=== PATIENT | male | born 1975 | race African-American/Black ===

== ENCOUNTER 2016-08-20 00:51 | Emergency (ER) | payer OTHER ==
[2016-08-20] MEDS ORDERED: Pantoprazole 40 MG VIAL ONE (01:20)
[2016-08-20 01:27] LABS: #Basophils 0.1 thou/uL (0.0-0.2); #Eosinphils 0.6 thou/uL (0.0-0.7); #Lymphocytes 2.6 thou/uL (1.20-3.40); #Monocytes 0.5 thou/uL (0.11-0.59); %Basophils 1.4 % (0.0-1.0); %Eosinophils 7.4 % (0.0-10.0); %Monocytes 6.8 % (0.0-10.0); Hematocrit 46.8 % (42.0-52.0); Mean Platelet Volume 11.4 fL (7.4-10.4); Red Blood Cell (RBC) Count 5.29 mill/uL (4.70-6.10); White Blood Cell (WBC) Count 7.9 thou/uL (4.8-10.8)
[2016-08-20 01:40] LABS: ALT (SGPT) 30 U/L (0-55); AST (SGOT) 19 U/L (5-34); Alkaline Phosphatase 50 U/L (40-150); Anion Gap 12 mmol/L (10-20); BUN (Urea Nitrogen) 21 mg/dL (8.9-20.6); Bilirubin, Total 0.5 mg/dL (0.2-1.2); Calc. Creatinine Clearance 0 mL/min (70-130); Calcium 9.1 mg/dL (7.8-10.44); Carbon Dioxide 24 mmol/L (22-29); Chloride 108 mmol/L (98-107); Estimated GFR-MDRD 89; Globulin 2.8 g/dL (2.4-3.5)
[2016-08-20 01:41] LABS: Troponin I Less than 0.010 ng/mL (< 0.028)
--- NOTE | 2016-08-20 03:14 | ERRECORD ---
[facility] EMERGENCY RECORD HPI CHEST PAIN (01:10 WMEI) CHIEF COMPLAINT: Patient presents for evaluation of chest pain, ongoing. HISTORIAN: History provided by patient, x 3 days intermittent lasts seconds no assc symptoms. LOCATION: Symptoms are localized, most severe in substernal area. QUALITY: Pain is dull in nature. TIME COURSE: Gradual onset of symptoms, Symptoms are improving. ASSOCIATED WITH: No associated diaphoresis, No associated nausea, No associated shortness of breath. EXACERBATED BY: Patient's condition exacerbated by nothing. RELIEVED BY: Patient's condition relieved by nothing. ROS (01:11 WMEI) CONSTITUTIONAL: Historian denies chills, denies fever. EYES: Historian denies eye pain, denies eye discharge. ENT: Historian denies rhinorrhea, denies sore throat. CARDIOVASCULAR: Historian reports chest pain, no radiation, Historian denies diaphoresis. RESPIRATORY: Historian denies cough, denies shortness of breath. GI: Historian denies abdominal pain, denies nausea, denies vomiting. MUSCULOSKELETAL: Historian denies joint redness, denies joint stiffness. SKIN: Historian denies skin changes, denies skin lesions. NEUROLOGIC: Historian denies headache, denies mental status changes. PSYCHIATRIC: Historian denies alcohol abuse, denies depression, denies drug abuse. PAST MEDICAL HISTORY MEDICAL HISTORY: Notes: hydrocephaly, Flu vaccine up to date, Date of immunization: 2013, Tetanus not up to date, Pneumococcal vaccine not up to date, Past medical history includes cardiac history, Past medical history includes history of hyperlipidemia, high cholesterol, currently being treated, Past medical history includes history of hypertension, which has been treated, Patient is compliant. REVIEWED 08/20/16. (01:09 CHOB) No past medical history of cardiac disease, Past medical history includes gastrointestinal disease, gastroesophageal reflux disease. 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 REVIEWED 08/20/16. (01:09 CHOB) PSYCHIATRIC HISTORY: No previous psychiatric history. REVIEWED 08/20/16. (01:09 CHOB) SOCIAL HISTORY: Patient denies alcohol use, Patient denies drug use, Patient has no smoking history, Lives at home, with family. REVIEWED 08/20/16. (01:09 CHOB) &a-1R&a+25V*p+0X*q0960S*c202B*c15G*c2P*p-0X&a-25V&a+1R Name: Mendoza Almaraz : 1975 M41 MedRec: [id number] AcctNum: [id number] Prepared: SatAug 20, 2016 02:49 by Interface Page 1 of 3 pMD [facility] EMERGENCY RECORD KNOWN ALLERGIES No Known Drug Allergies (Unconfirmed) simvastatin: - causes rapid heart beat CURRENT MEDICATIONS PriLOSEC OTC: TABLET, DELAYED RELEASE (ENTERIC COATED) : Strength - 20 mg : ORAL Patient Dose: once a day. (02:30 CHOB) atorvastatin: TABLET : Strength - 10 mg : ORAL Patient Dose: once a day. (02:30 CHOB) Aspirin Low Dose: TABLET, DELAYED RELEASE (ENTERIC COATED) : Strength - 81 mg : ORAL Patient Dose: once a day. (02:30 CHOB) meTOPROLOL tartrate: TABLET : Strength - 50 mg : ORAL Patient Dose: 1 tab(s) Oral once a day (in the morning). (02:32 CHOB) lisinopril: TABLET : Strength - 10 mg : ORAL Patient Dose: 1 tab(s) Oral once a day (in the morning). (02:32 CHOB) VITAL SIGNS VITAL SIGNS: BP: 111/66, Pulse: 87 (Regular), Resp: 18 (Non-Labored), Temp: 97.2 (Oral), Pain: 0, O2 sat: 95 on Room Air, Time: 08/20/2016 00:52. (00:52 CHOB) BP: 130/102, Pulse: 86, Resp: 20, Pain: 0, O2 sat: 96, Time: 08/20/2016 01:02. (01:02 LSMI) BP: 137/94, Pulse: 87, Resp: 19, Pain: 0, O2 sat: 97 on Room Air, Time: 08/20/2016 01:11. (01:11 CHOB) BP: 136/90, Pulse: 88, Resp: 20, Temp: 98.0 (Oral), Pain: 0, O2 sat: 98 on Room Air, Time: 08/20/2016 02:00. (02:00 LSMI) BP: 134/90, Pulse: 86, Resp: 20, Temp: 98.0 (Oral), Pain: 0, O2 sat: 98 on Room Air, Time: 08/20/2016 02:35. (02:35 LSMI) PHYSICAL EXAM (01:12 WMEI) CONSTITUTIONAL: Vital Signs Reviewed, Patient appears non toxic, Patient alert and oriented to person, place and time. HEAD: Head exam included findings of head atraumatic, normocephalic. EYES: Extraocular muscles intact, Conjunctiva normal, Sclera normal. ENT: Ear exam normal, Nose exam normal, Pharynx exam normal. NECK: Neck exam included findings of normal range of motion, Trachea midline. RESPIRATORY CHEST: Breath sounds clear, Chest exam included findings of chest movement symmetrical. CARDIOVASCULAR: Heart rate regular rate and rhythm, Heart sounds &a-1R&a+25V*p+0X*t8135V*c202B*c15G*c2P*p-0X&a-25V&a+1R Name: Mendoza Almaraz : 1975 M41 MedRec: [id number] AcctNum: [id number] Prepared: SatAug 20, 2016 02:49 by Interface Page 2 of 3 pMD [facility] EMERGENCY RECORD normal. ABDOMEN MALE: Abdominal exam included findings of abdomen nontender, no distension. UPPER EXTREMITY: Upper extremity exam included findings of inspection normal, Range of motion normal, Motor strength normal. LOWER EXTREMITY: Lower extremity exam included findings of inspection normal, Range of motion normal, Motor strength normal. NEURO: Gaston coma scale 15, Neuro exam findings include patient oriented to person, place and time, Speech normal, Gait normal. SKIN: Skin exam included findings of skin warm, dry, and normal in color. LYMPHATIC: Lymphatic exam normal. PSYCHIATRIC: Psychiatric exam included findings of patient oriented to person place and time, Normal affect, Judgment normal, Insight normal. RADIOLOGYINTERPRETATION (02:02 WMEI) PET CARE TECHNICIAN: Preliminary review of x-rays by, ED Physician, chest wnl. MEDICATION ADMINISTRATION SUMMARY Drug Name: Aspir-81, Dose Ordered: 324 mg, Route: Oral, Status: Given, Time: 01:29 08/20/2016, Drug Name: Protonix intravenous, Dose Ordered: 40 mg, Route: IV Push, Status: Given, Time: 01:24 08/20/2016, Detailed record available in Medication Service section. PROBLEM LIST No recorded problems DIAGNOSIS (02:08 WMEI) FINAL: PRIMARY: Chest Pain, unspecified, ADDITIONAL: gerd. PRESCRIPTION No recorded prescriptions DISPOSITION PATIENT: Disposition Type: Discharge, Disposition: *Discharge Home. (02:08 WMEI) Patient left the department. (02:44 LSMI) Grewal: CURTIS=ALBERT Macario, Janay LSMI=ANA Meek Leah WMEI=DO Esteban William &a-1R&a+25V*p+0X*n6522S*c202B*c15G*c2P*p-0X&a-25V&a+1R Name: Mendoza Almaraz : 1975 M41 MedRec: [id number] AcctNum: [id number] Prepared: SatAug 20, 2016 02:49 by Interface Page 3 of 3 pMD MTDD
--- NOTE | 2016-08-20 03:17 | PICIS ---
[facility] EMERGENCY RECORD TRIAGE (SatAug 20, 2016 00:55 CHOB) TRIAGE NOTES: CHEST PAIN INTERMITTENTLY X3 DAYS. PT STATES CHEST PAIN WOKE HIM UP OUT OF SLEEP APX 30 MINUTES. AT PRESENT PT DENIES ANY PAIN PRESENT. (SatAug 20, 2016 00:55 CHOB) PATIENT: NAME: Mendoza Almaraz, AGE: 41, GENDER: male, : Sat1975, TIME OF GREET: SatAug 20, 2016 00:52, PREFERRED LANGUAGE: [place], ETHNICITY: Not or , ECODE BILLING MAP: [facility], SSN: [id number], Zip Code: [address], KG WEIGHT: 120.2 (est.), PHONE: , , , PERSON ID: [id number], PCP: MD TREADWELL THOMAS. (SatAug 20, 2016 00:55 CHOB) COMPLAINT: HIGH RISK COMPLAINT: Chest Pain. (SatAug 20, 2016 00:55 CHOB) ADMISSION: URGENCY: 2 Emergent, ADMISSION SOURCE: Home, TRANSPORT: CAR, BED: ER -04. (SatAug 20, 2016 00:55 CHOB) ASSESSMENT: Assessment: PT A/OX4, SPEAKS FULL SENTENCES, GCS 15 (4,5,6) SKIN W/D. NO PAIN AT PRESENT. PT DENIES N/V, NO DISTRESS NOTED., Symptoms began 08/17/2016 01:09. (01:09 CHOB) PAIN: No complaint of pain, Location NO PAIN AT PRESENT, WHEN PAIN IS PRESENT, PAIN IS LOCATED LT CHEST, PRESSURE, Pain is intermittent. (01:09 CHOB) SIRS SCORING: Heart Rate 55-109 (0), Temp range 96.8-101.1 (0), respiratory rate 12-24 (0), Mental Status altered: no (0), Infection or Suspected Infection: No. (01:09 CHOB) TRIAGE SCREENING: Patient denies suicidal ideation, Patient denies presence of domestic violence. (01:09 CHOB) PROVIDERS: TRIAGE NURSE: Janay Macario RN. (SatAug 20, 2016 00:55 CHOB) VITAL SIGNS: BP 111/66, Pulse 87, (Regular), Resp 18, (Non-Labored), Temp 97.2, (Oral), Pain 0, O2 Sat 95, on Room Air, Time 08/20/2016 00:52. (00:52 CHOB) PREVIOUS VISIT ALLERGIES: simvastatin. (SatAug 20, 2016 00:55 CHOB) simvastatin. (01:09 CHOB) KNOWN ALLERGIES No Known Drug Allergies (Unconfirmed) simvastatin: - causes rapid heart beat CURRENT MEDICATIONS PriLOSEC OTC: TABLET, DELAYED RELEASE (ENTERIC COATED) : Strength - 20 mg : ORAL Patient Dose: once a day. (02:30 CHOB) atorvastatin: TABLET : Strength - 10 mg : ORAL Patient Dose: once a day. (02:30 CHOB) Aspirin Low Dose: TABLET, DELAYED RELEASE (ENTERIC COATED) : Strength - 81 mg : ORAL Patient Dose: once a day. (02:30 CHOB) meTOPROLOL tartrate: &a-1R&a+25V*p+0X*f0692N*c202B*c15G*c2P*p-0X&a-25V&a+1R Name: Mendoza Almaraz : 1975 M41 MedRec: [id number] AcctNum: [id number] Prepared: SatAug 20, 2016 02:54 by Interface Page 1 of 8 pMD [facility] EMERGENCY RECORD TABLET : Strength - 50 mg : ORAL Patient Dose: 1 tab(s) Oral once a day (in the morning). (02:32 CHOB) lisinopril: TABLET : Strength - 10 mg : ORAL Patient Dose: 1 tab(s) Oral once a day (in the morning). (02:32 CHOB) VITAL SIGNS VITAL SIGNS: BP: 111/66, Pulse: 87 (Regular), Resp: 18 (Non-Labored), Temp: 97.2 (Oral), Pain: 0, O2 sat: 95 on Room Air, Time: 08/20/2016 00:52. (00:52 CHOB) BP: 130/102, Pulse: 86, Resp: 20, Pain: 0, O2 sat: 96, Time: 08/20/2016 01:02. (01:02 LSMI) BP: 137/94, Pulse: 87, Resp: 19, Pain: 0, O2 sat: 97 on Room Air, Time: 08/20/2016 01:11. (01:11 CHOB) BP: 136/90, Pulse: 88, Resp: 20, Temp: 98.0 (Oral), Pain: 0, O2 sat: 98 on Room Air, Time: 08/20/2016 02:00. (02:00 LSMI) BP: 134/90, Pulse: 86, Resp: 20, Temp: 98.0 (Oral), Pain: 0, O2 sat: 98 on Room Air, Time: 08/20/2016 02:35. (02:35 LSMI) NURSING ASSESSMENT: CARDIOVASCULAR (01:10 CHOB) CONSTITUTIONAL: Complex assessment performed, Patient arrives ambulatory, Gait steady, History obtained from patient, Patient appears comfortable, Patient cooperative, Patient alert, Oriented to person, place and time, Skin warm, Skin dry, Skin normal in color, Mucous membranes pink, Mucous membranes moist, Patient is well-groomed, Patient complains of INTERMITTENT CHEST PAIN. PAIN: NO PAIN AT PRESENT. CARDIOVASCULAR: Cardiovascular assessment findings include heart rate normal, Heart rhythm normal sinus, Heart sounds normal, S1, S2, Left radial pulse +3(easily palpated, considered normal), Right radial pulse +3(easily palpated, considered normal), Left dorsalis pedis pulse +3(easily palpated, considered normal), Right dorsalis pedis pulse +3(easily palpated, considered normal), Notes: NO ASSOCIATED SX REPORTED. RESPIRATORY/CHEST: Breath sounds clear, Respiratory assessment findings include respiratory effort easy, Respirations regular, Conversing normally, Neck and chest exam findings include trachea midline, Chest expansion equal, Chest movement symmetrical, no signs of distress, no associated cough noted, no associated fever, no associated fume exposure. SAFETY: Side rails up, Cart/Stretcher in lowest position, Family at bedside, Call light within reach, Hospital ID band on. NURSING PROCEDURE: MANUFACTURERS AGENT (00:55 CHOB) PATIENT IDENTIFIER: Patient actively involved in identification process, Patient's identity verified by patient stating name, Patient's identity verified by patient stating date. MANUFACTURERS AGENT: Cardiac monitoring indicated for complaint of &a-1R&a+25V*p+0X*h6276S*c202B*c15G*c2P*p-0X&a-25V&a+1R Name: Mendoza Almaraz : 1975 M41 MedRec: [id number] AcctNum: [id number] Prepared: SatAug 20, 2016 02:54 by Interface Page 2 of 8 pMD [facility] EMERGENCY RECORD chest pain, Patient placed on senior mechanical designer, Heart rate: 86, showing normal sinus rhythm, without ectopy, with no ST segment changes, Strip posted on chart, Patient placed on non-invasive blood pressure monitor, with disposable blood pressure cuff applied, Patient placed on continuous pulse oximetry, Adult/pediatric oxisensor applied, Oxygen saturation 95%. FOLLOW-UP: After procedure, alarms set and on, After procedure, patient tolerating monitoring. SAFETY: Side rails up, Cart/Stretcher in lowest position, Family at bedside, Call light within reach, Hospital ID band on. NURSING PROCEDURE: DISCHARGE NOTE (02:40 LSMI) DISCHARGE: Patient discharged to home, ambulating without assistance, family driving, unaccompanied, Summary of Care printed/ provided, Transition record given to patient, Discharge instructions given to patient, Simple or moderate discharge teaching performed, Above person(s) verbalized understanding of discharge instructions and follow-up care, Patient treated and evaluated by physician. NURSING PROCEDURE: EKG CHART (01:14 CHOB) PATIENT IDENTIFIER: Patient actively involved in identification process, Patient's identity verified by patient stating name, Patient's identity verified by patient stating date. EKG: EKG indicated for complaint of chest pain, 12 lead EKG performed on the left chest, done by ALBERT FAJARDO, first EKG, DONE AT 0053. FOLLOW-UP: After procedure, EKG for interpretation given to Dr. ESTEBAN, Notes: NSR. SAFETY: Side rails up, Cart/Stretcher in lowest position, Family at bedside, Call light within reach, Hospital ID band on. NURSING PROCEDURE: IV PATIENT IDENITIFIER: Patient actively involved in identification process, Patient's identity verified by patient stating name, Patient's identity verified by patient stating date. (01:00 CHOB) Patient actively involved in identification process, Patient's identity verified by patient stating name, Patient's identity verified by patient stating date, Patient's identity verified by hospital ID bracelet, Patient's identity verified by family member. (02:40 LSMI) IV SITE 1: IV therapy indicated for hydration, IV therapy indicated for medication administration, IV established, to the right antecubital, using a 20 gauge catheter, in one attempt, IV site prepped with CHLORAPREP, Saline lock established, Flushed with normal saline (mls): 10. (01:00 CHOB) IV therapy indicated for hydration, IV therapy indicated for medication administration, IV established, to the right antecubital, using a 20 gauge catheter, in one attempt, Saline lock established, Flushed with normal saline (mls): 10, Labs drawn at time of placement, labeled in &a-1R&a+25V*p+0X*w9154O*c202B*c15G*c2P*p-0X&a-25V&a+1R Name: Mendoza Almaraz : 1975 M41 MedRec: [id number] AcctNum: [id number] Prepared: SatAug 20, 2016 02:54 by Interface Page 3 of 8 D [facility] EMERGENCY RECORD the presence of the patient and sent to lab. (02:40 LSMI) FOLLOW-UP SITE 1: After procedure, sterile transparent dressing applied, After procedure, IV line connections checked and properly labeled. (01:00 CHOB) SAFETY: Side rails up, Cart/Stretcher in lowest position, Family at bedside, Call light within reach, Hospital ID band on. (01:00 CHOB) ORDER DETAILS Order Name: Cardiac Profile w/CKMB & Troponin - I, Status: Active, Time: 01:05 08/20/2016, User: RAKESH, - Ordered for: DO Esteban William, - Entered by: DO Esteban William - SatAug 20, 2016 01:05, - Quantity: 1, Order Name: CBC with Differential, Status: Active, Time: 01:05 08/20/2016, User: RAKESH, - Ordered for: DO Esteban William, - Entered by: DO Esteban William - SatAug 20, 2016 01:05, - Quantity: 1, Order Name: Comprehensive Metabolic Panel, Status: Active, Time: 01:05 08/20/2016, User: RAKESH, - Ordered for: DO Esteban William, - Entered by: DO Esteban William - SatAug 20, 2016 01:05, - Quantity: 1, Order Name: EKG 12 Lead in Emergency Room, Status: Active, Time: 01:05 08/20/2016, User: RAKESH, - Ordered for: DO Esteban William, - Entered by: DO Esteban William - SatAug 20, 2016 01:05, - Quantity: 1, Order Name: SALINE LOCK, Status: Done, Time: 01:34 08/20/2016, User: CURTIS, - Ordered for: DO Esteban William, - Entered by: DO Esteban William - SatAug 20, 2016 01:05, - Quantity: 1, Order Name: XR Chest 1 View Portable, Status: Active, Time: 01:05 08/20/2016, User: RAKESH, - Ordered for: DO Esteban William, - Entered by: DO Esteban William - SatAug 20, 2016 01:05, - Quantity: 1. MEDICATION ADMINISTRATION SUMMARY Drug Name: Aspir-81, Dose Ordered: 324 mg, Route: Oral, Status: Given, Time: 01:29 08/20/2016, Drug Name: Protonix intravenous, Dose Ordered: 40 mg, Route: IV Push, Status: Given, Time: 01:24 08/20/2016, Detailed record available in Medication Service section. MEDICATION SERVICE &a-1R&a+25V*p+0X*v9284Z*c202B*c15G*c2P*p-0X&a-25V&a+1R Name: Mendoza Almaraz : 1975 M41 MedRec: [id number] AcctNum: [id number] Prepared: SatAug 20, 2016 02:54 by Interface Page 4 of 8 pMD [facility] EMERGENCY RECORD Aspir-81: Order: Aspir-81 (aspirin) - Dose: 324 mg : Oral Schedule: Now Ordered by: Ray Esteban DO Entered by: Ray Esteban DO SatAug 20, 2016 01:06 , Acknowledged by: Maxine Meek LVN SatAug 20, 2016 01:19 Documented as given by: Maxine Meek LVN SatAug 20, 2016 01:29 Patient, Medication, Dose, Route and Time verified prior to administration. Site: Medication administered P.O., Correct patient, time, route, dose and medication confirmed prior to administration, Patient advised of actions and side-effects prior to administration, Allergies confirmed and medications reviewed prior to administration, Patient in position of comfort, Side rails up, Cart in lowest position, Family at bedside, Call light in reach. Protonix intravenous: Order: Protonix intravenous (pantoprazole sodium) - Dose: 40 mg : IV Push Schedule: Now Ordered by: Ray Esteban DO Entered by: Ray Esteban DO SatAug 20, 2016 01:09 , Acknowledged by: Maxine Meek LVN SatAug 20, 2016 01:19 Documented as given by: Maxine Meek LVN SatAug 20, 2016 01:24 Patient, Medication, Dose, Route and Time verified prior to administration. IV SITE #1 IVPB or drip, initial infusion, Catheter placement confirmed via flush prior to administration, IV site without signs or symptoms of infiltration during medication administration, No swelling during administration, No drainage during administration, IV flushed after administration, Correct patient, time, route, dose and medication confirmed prior to administration, Patient advised of actions and side-effects prior to administration, Allergies confirmed and medications reviewed prior to administration, Patient in position of comfort, Side rails up, Cart in lowest position, Family at bedside, Call light in reach. : Follow Up : Response assessment performed, No signs or symptoms of allergic reaction noted, _IV SITE #1:_, Medication infusion discontinued, on SatAug 20, 2016 02:00, 40 minutes, ., Total amount infused: 100, IV Discontinued with catheter intact. (02:00 LSMI) HPI CHEST PAIN (01:10 WMEI) CHIEF COMPLAINT: Patient presents for evaluation of chest pain, ongoing. HISTORIAN: History provided by patient, x 3 days intermittent lasts seconds no assc symptoms. LOCATION: Symptoms are localized, most severe in substernal area. QUALITY: Pain is dull in nature. TIME COURSE: Gradual onset of symptoms, Symptoms are improving. &a-1R&a+25V*p+0X*g8440D*c202B*c15G*c2P*p-0X&a-25V&a+1R Name: Mendoza Almaraz : 1975 M41 MedRec: [id number] AcctNum: [id number] Prepared: SatAug 20, 2016 02:54 by Interface Page 5 of 8 pMD [facility] EMERGENCY RECORD ASSOCIATED WITH: No associated diaphoresis, No associated nausea, No associated shortness of breath. EXACERBATED BY: Patient's condition exacerbated by nothing. RELIEVED BY: Patient's condition relieved by nothing. ROS (01:11 WMEI) CONSTITUTIONAL: Historian denies chills, denies fever. EYES: Historian denies eye pain, denies eye discharge. ENT: Historian denies rhinorrhea, denies sore throat. CARDIOVASCULAR: Historian reports chest pain, no radiation, Historian denies diaphoresis. RESPIRATORY: Historian denies cough, denies shortness of breath. GI: Historian denies abdominal pain, denies nausea, denies vomiting. MUSCULOSKELETAL: Historian denies joint redness, denies joint stiffness. SKIN: Historian denies skin changes, denies skin lesions. NEUROLOGIC: Historian denies headache, denies mental status changes. PSYCHIATRIC: Historian denies alcohol abuse, denies depression, denies drug abuse. PAST MEDICAL HISTORY MEDICAL HISTORY: Notes: hydrocephaly, Flu vaccine up to date, Date of immunization: 2013, Tetanus not up to date, Pneumococcal vaccine not up to date, Past medical history includes cardiac history, Past medical history includes history of hyperlipidemia, high cholesterol, currently being treated, Past medical history includes history of hypertension, which has been treated, Patient is compliant. REVIEWED 08/20/16. (01:09 CHOB) No past medical history of cardiac disease, Past medical history includes gastrointestinal disease, gastroesophageal reflux disease. 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 REVIEWED 08/20/16. (01:09 CHOB) PSYCHIATRIC HISTORY: No previous psychiatric history. REVIEWED 08/20/16. (01:09 CHOB) SOCIAL HISTORY: Patient denies alcohol use, Patient denies drug use, Patient has no smoking history, Lives at home, with family. REVIEWED 08/20/16. (01:09 CHOB) PHYSICAL EXAM (01:12 WMEI) CONSTITUTIONAL: Vital Signs Reviewed, Patient appears non toxic, Patient alert and oriented to person, place and time. HEAD: Head exam included findings of head atraumatic, normocephalic. EYES: Extraocular muscles intact, Conjunctiva normal, Sclera normal. ENT: Ear exam normal, Nose exam normal, Pharynx exam normal. NECK: Neck exam included findings of normal range of motion, &a-1R&a+25V*p+0X*y1871T*c202B*c15G*c2P*p-0X&a-25V&a+1R Name: Mendoza Almaraz : 1975 M41 MedRec: [id number] AcctNum: [id number] Prepared: SatAug 20, 2016 02:54 by Interface Page 6 of 8 pMD [facility] EMERGENCY RECORD Trachea midline. RESPIRATORY CHEST: Breath sounds clear, Chest exam included findings of chest movement symmetrical. CARDIOVASCULAR: Heart rate regular rate and rhythm, Heart sounds normal. ABDOMEN MALE: Abdominal exam included findings of abdomen nontender, no distension. UPPER EXTREMITY: Upper extremity exam included findings of inspection normal, Range of motion normal, Motor strength normal. LOWER EXTREMITY: Lower extremity exam included findings of inspection normal, Range of motion normal, Motor strength normal. NEURO: Canalou coma scale 15, Neuro exam findings include patient oriented to person, place and time, Speech normal, Gait normal. SKIN: Skin exam included findings of skin warm, dry, and normal in color. LYMPHATIC: Lymphatic exam normal. PSYCHIATRIC: Psychiatric exam included findings of patient oriented to person place and time, Normal affect, Judgment normal, Insight normal. LAB INTERPRETATION (02:03 WMEI) INTERPRETATION: I reviewed the lab results, CBC normal, Cardiac enzymes normal. EVENTS TRANSFER: Triage to Emergency Emergency Room -04. (00:55 CHOB) Removed from Emergency Emergency Room -04. (02:44 LSMI) RADIOLOGYINTERPRETATION (02:02 WMEI) CORE LOADER: Preliminary review of x-rays by, ED Physician, chest wnl. PROBLEM LIST No recorded problems DIAGNOSIS (02:08 WMEI) FINAL: PRIMARY: Chest Pain, unspecified, ADDITIONAL: gerd. DISPOSITION PATIENT: Disposition Type: Discharge, Disposition: *Discharge Home. (02:08 WMEI) Patient left the department. (02:44 LSMI) INSTRUCTION (02:09 WMEI) DISCHARGE: CHEST PAIN ATYPICAL, GERD ADULT. [facility] [address], [place] [address], [phone]. SPECIAL: Follow-up with your PCP. &a-1R&a+25V*p+0X*a6678S*c202B*c15G*c2P*p-0X&a-25V&a+1R Name: Mendoza Almaraz : 1975 3 MedRec: [id number] AcctNum: [id number] Prepared: SatAug 20, 2016 02:54 by Interface Page 7 of 8 pMD [facility] EMERGENCY RECORD PRESCRIPTION No recorded prescriptions IMAGING MONITOR STRIPS: Image captured from scanner. (01:00 LSMI) *DISCHARGE INSTRUCTIONS RECEIPT: Image captured from scanner. (02:45 LSMI) *SUPPLY CHARGE SHEET: Image captured from scanner. (02:45 LSMI) Grewal: CURTIS=ALBERT Macario, Janay LSMI=ANA Meek Leah WMEI=DO Esteban William &a-1R&a+25V*p+0X*t9995Q*c202B*c15G*c2P*p-0X&a-25V&a+1R Name: Mendoza Almaraz : 1975 3 MedRec: [id number] AcctNum: [id number] Prepared: SatAug 20, 2016 02:54 by Interface Page 8 of 8 pMD MTDD
--- NOTE | 2016-08-20 10:16 | RAD ---
PORTABLE CHEST 08/20/2016 An AP portable film at 0126 hours is compared with a 10/31/2014 study. The heart is normal in size. There are no congestive changes or pleural effusions. No focal pulmonary infiltrates are seen. Th e trachea is midline. IMPRESSION: No acute thoracic findings. POS: HOME
== END 2016-08-20 02:46 | disposition home or self-care (01) ==
LOC: BURERS 00:51
DX: K21.9 Gastro-esophageal reflux disease without esophagitis (principal); E78.5 Hyperlipidemia, unspecified; E78.00 Pure hypercholesterolemia, unspecified; I10 Essential (primary) hypertension
CPT/HCPCS: 71010; 80053; 82553; 84484; 85025; 93005; 96365; C9113